=== PATIENT | male | born 2000 | race Caucasian/White ===

== ENCOUNTER 2023-11-13 16:54 | Emergency (ER) | payer OTHER, BC, SELFPAY ==
[2023-11-13 17:02] VITALS: BP 149/63; PULSE 77; RESP 14; TEMP 36.8; O2SAT 96; BMI 27.5
--- NOTE | 2023-11-13 17:02 | XR_ITS ---
The [address] [address] Patient Name: KARLY VASQUEZ MRN: [id number] date: 2000 Sex: M Assigned Patient Location: ED.MAIN Current Patient Location: ER Accession/Order Number: [id number] Exam Date: 11/13/2023 17:10 Report Date: 11/13/2023 17:57 At the request of: CATALINA REDMOND Procedure: XR foot RT min 3V IMAGES REVIEWED: XR foot RT min 3V COMPARISON: None available. CLINICAL INDICATION: right foot pain FINDINGS/IMPRESSION: There appears to be an acute nondisplaced fracture of the distal fourth metatarsal shaft on the frontal view. Otherwise the right foot appears intact. No dislocation. Electronically authenticated by: BRANDIE RYAN Date: 11/13/2023 17:57
--- NOTE | 2023-11-13 17:15 | ED.LOWEXI1 ---
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 He states instead of kicking with his kellogg, he accidentally kicked another adults knee with his foot. He reports pain with walking to the distal foot. He is noted to have ecchymosis to the right lateral proximal foot although he does not have any pain to this area or to the right ankle. No other associated injuries. He has been using Motrin and Tylenol. He is able to ambulate. Related Data Home Medications Medication Instructions Recorded Confirmed acetaminophen 325 mg capsule 650 mg PO ONCE PRN pain 11/13/23 11/13/23 (Tylenol) ibuprofen 200 mg capsule 600 mg PO ONCE 11/13/23 11/13/23 Previous Rx's Medication Instructions Recorded hydrocodone 5 mg-acetaminophen 325 1 tab PO Q6H PRN pain #12 tabs 11/13/23 mg tablet Allergies Allergy/AdvReac Type Severity Reaction Status Date / Time No Known Drug Allergies Allergy Verified 11/13/23 17:05 Review of Systems ROS Constitutional Denies: fever or chills Ears, nose, mouth, and throat Denies: throat pain or neck pain Cardiovascular Denies: chest pain Respiratory Denies: shortness of breath or cough Gastrointestinal Denies: nausea or vomiting Genitourinary Denies: painful urination Musculoskeletal Reports: extremity pain; Denies: back pain Integumentary/Breast Denies: rash Neurological Denies: headache Hematologic/Lymphatic Denies: easy bruising PFSH PFSH Social History Smoking status: Never smoker Exam Narrative Exam Narrative: Gen.: Awake, alert, in no distress Head: Normocephalic, atraumatic ENT: Moist mucous membranes Respiratory: No respiratory distress Extremities: Moves extremities equally, ecchymosis to the right lateral foot inferior to the lateral malleolus with faint ecchymosis noted over the dorsum of the toes. Normal flexion and extension of the toes with no circumferential swelling. 2+ right DP pulse. Psych: Normal mood and affect Neuro: No focal neuro deficit Skin: Warm, dry, intact Constitutional Vital Signs, click to edit/add: Last Vital Signs Temp 98.2 F 11/13/23 17:02 Pulse 77 11/13/23 17:02 Resp 14 11/13/23 17:02 BP 149/63 H 11/13/23 17:02 Pulse Ox 96 11/13/23 17:02 O2 Del Method Room Air 11/13/23 17:02 Course Vital Signs Vital signs: Vital Signs Temperature 98.2 F 11/13/23 17:02 Pulse Rate 77 11/13/23 17:02 Respiratory Rate 14 11/13/23 17:02 Blood Pressure 149/63 H 11/13/23 17:02 Pulse Oximetry 96 11/13/23 17:02 Oxygen Delivery Method Room Air 11/13/23 17:02 Temperature 98.2 F 11/13/23 17:02 Pulse Rate 77 11/13/23 17:02 Respiratory Rate 14 11/13/23 17:02 Blood Pressure 149/63 H 11/13/23 17:02 Pulse Oximetry 96 11/13/23 17:02 Oxygen Delivery Method Room Air 11/13/23 17:02 MDM - Extremity Injury (Lower) MDM Narrative Medical decision making narrative: X-rays read by the radiologist show a nondisplaced fracture of the distal fourth metatarsal. He was placed in an Heladio wrap and postop shoe and remains neurovascularly intact. He was encouraged to follow-up with Dr. Peoples for foot and ankle, x-rays were reviewed by myself and Dr. Barnes, and no fractures evident to us. Patient was made aware that he may have a nondisplaced fracture versus an over read from radiology. He will be reevaluated by podiatry, short course of analgesics given for home. Rest, ice, elevate. He remains neurovascularly intact at discharge. Return to the ER if symptoms change or worsen. Medical Records Attestation: I reviewed the patient's medical records. Imaging Data XR foot: Attestation: I have reviewed the pertinent imaging results. Discharge Plan Discharge Chief Complaint: Extremity Injury, Lower Clinical Impression: Metatarsal fracture Patient Disposition: Home, Self-Care Time of Disposition Decision: 18:05 Condition: Good Prescriptions / Home Meds: New hydrocodone-acetaminophen 5-325 mg tablet 1 tab PO Q6H PRN (Reason: pain) Qty: 12 0RF Rx Instructions: DX: M79.671 No Action ibuprofen 200 mg capsule 600 mg PO ONCE acetaminophen [Tylenol] 325 mg capsule 650 mg PO ONCE PRN (Reason: pain) Instructions: Foot Fracture in Adults (ED) Stand Alone Forms: Portal Instructions Referrals: Physician,Non-Staff, MD [Primary Care Provider] - 1 week Spencer Lozano DPM [Physician] - 1 week
== END 2023-11-13 18:14 | disposition home or self-care (01) ==
PROVIDERS: Emergency Provider Emergency Medicine
DX: S92.344A Nondisplaced fracture of fourth metatarsal bone, right foot, initial encounter for closed fracture (principal); W51.XXXA Accidental striking against or bumped into by another person, initial encounter; Y93.75 Activity, martial arts
CPT/HCPCS: 73630; 99283